=== PATIENT | male | born 1945 | race Caucasian/White ===

== ENCOUNTER → 2016-02-27 | Outpatient (CLI) | payer BC ==
[~2016-02-27] MED LIST: ALLO100T; ALLO100T PO; AMBI10TA PO; ASPI81TA11 PO; ATOR1TAB18 PO; AVAN8TAB3; BABY81CH; CALCCHW12; CARI350T; CIPR25SS; FLAG250T; FLUO20CA8 PO; GLIP5TAB8 PO; PERCOCET PO; PRIL40CA PO; PROZ10CA; SOMA350T PO; TAMS0.4C2 PO; THERGRAN; TOPA200T6 PO; TOPI15CA; TRAM50TA2 PO; XANA1TAB; XANA2TAB2 PO; questran
== END ==
LOC: M LAB 14:43
PROVIDERS: ATTEND Radiology Radiation Oncology
DX: C61 Malignant neoplasm of prostate (principal)

== ENCOUNTER → 2016-02-29 | Outpatient (CLI) | payer BC | LOC: M ONCR 13:04 | PROVIDERS: ATTEND Radiology Radiation Oncology | DX: C61 Malignant neoplasm of prostate (principal); Z53.8 Procedure and treatment not carried out for other reasons ==

== ENCOUNTER → 2016-05-25 | Outpatient (REF) | payer BC ==
[2016-05-25 15:51] LABS: ALBUMIN 3.4 GM/DL (3.2-5.2); BILIRUBIN,TOTAL 0.3 MG/DL (0.2-1.0); CALCIUM LEVEL 8.8 MG/DL (8.8-10.2); CREATININE FOR GFR 1.91 MG/DL (0.70-1.30); GLOMERULAR FILTRATION RATE 37.3 (>42); TOTAL PROTEIN 6.8 GM/DL (6.4-8.2)
== END ==
LOC: M SFHCPLAZ 11:21
PROVIDERS: ATTEND Family Medicine
DX: E66.01 Morbid (severe) obesity due to excess calories (principal); E11.3551 Type 2 diabetes mellitus with stable proliferative diabetic retinopathy, right eye

== ENCOUNTER → 2016-06-14 | Outpatient (CLI) | payer BC | LOC: M LAB 12:34 | PROVIDERS: ATTEND Radiology Radiation Oncology | DX: C61 Malignant neoplasm of prostate (principal) ==

== ENCOUNTER → 2016-06-20 | Outpatient (CLI) | payer BC ==
--- NOTE | 2016-06-26 13:20 | RADONC ---
RADIATION ONCOLOGY FOLLOWUP NOTE DATE: 06/20/2016 CHART NUMBER: [id number] DIAGNOSIS: Prostate cancer. STAGE: II, G5pN0I4. ECOG PERFORMANCE STATUS: 0 FOLLOWUP NOTE: Mr. Wagner is a very pleasant 71-year-old white male with the diagnosis of a stage II, [id number], moderate to poorly differentiated [place] score 7 (3-4) adenocarcinoma of prostate who is presenting to us today for routine followup visit 5 years and 2 months post completion of external beam radiation therapy. The patient presents today reporting that he is doing quite well with no complaints at this time related to his radiation therapy or disease. He is having no urinary or bowel difficulties, and no bone pain. REVIEW OF SYSTEMS: The patient's review of systems is otherwise noncontributory. He denies nausea, vomiting, fevers, chills, night sweats, diplopia, headaches, anxiety or depression, anorexia, weight loss, visual disturbances, chest pain, urinary or bowel difficulties, bone pain or neurological problems. PHYSICAL EXAMINATION: The patient is a well-developed, well-nourished male in no acute distress. HEENT exam is normocephalic, atraumatic. Extraocular movements are intact. There is no palpable cervical, supraclavicular, infraclavicular, axillary, or inguinal lymphadenopathy present. Lungs are clear to auscultation and percussion. Heart has a regular rate and rhythm. Abdomen is benign with no hepatosplenomegaly, masses, or tenderness. Rectal examination reveals a normal anal sphincter tone. His prostate is smooth with no evidence of nodularity. Skeletal examination reveals no tenderness to pressure or percussion of the bony skeleton. Extremities reveal no clubbing, cyanosis, or edema. Neurologic exam is grossly intact as is the remainder of the physical examination. ASSESSMENT: The patient is clinically stable at this time. A PSA was done on 06/14/2016 which is 3.43. This is actually down from previous PSA on 02/27/2016 which was 3.54, which itself was down from the PSA prior to that on 11/25/2015 which was 3.76. In light of the fact that we have had two PSAs decreasing in number on subsequent visits, I have now set him up for routine followup in 1 year. He will also continue to be followed by his other physicians as well. cc: Tan Encarnacion MD *Dr. Ole Echavarria *Reed Smith MD
== END ==
LOC: M ONCR 14:35
PROVIDERS: ATTEND Radiology Radiation Oncology
DX: C61 Malignant neoplasm of prostate (principal)

== ENCOUNTER → 2016-06-22 | Outpatient (REF) | payer BC | LOC: M SFHCPLAZ 14:20 | PROVIDERS: ATTEND Family Medicine | DX: N18.3 Chronic kidney disease, stage 3 (moderate) (principal) ==

== ENCOUNTER → 2016-10-24 | Outpatient (CLI) | payer BC ==
[~2016-10-24] MED LIST changes: +ASPI-101 PO; -ASPI81TA11 PO; -ATOR1TAB18 PO; +ATOR80TA59 PO; -TOPA200T6 PO; +TOPA200T7 PO
[2016-10-24 16:03] LABS: CALCIUM LEVEL 8.8 MG/DL (8.8-10.2); CREATININE FOR GFR 1.96 MG/DL (0.70-1.30); GLOMERULAR FILTRATION RATE 36.1 (>42); POTASSIUM SERUM 4.9 MEQ/L (3.5-5.1)
== END ==
LOC: M LAB 14:34
PROVIDERS: ATTEND Family Medicine
DX: N18.3 Chronic kidney disease, stage 3 (moderate) (principal)

== ENCOUNTER → 2016-11-12 | Outpatient (REF) | payer BC, SELFPAY ==
[2016-11-12 19:08] LABS: COMPLEMENT C3 136 MG/DL (90-180); COMPLEMENT C4 37.4 MG/DL (10-40); TOTAL PROTEIN 7.2 GM/DL (6.4-8.2)
[2016-11-12 21:49] LABS: BACTERIA, URINE SMALL AMOUNT; HYALINE CAST, URINE NONE SEEN /lpf (0-1); MICROSCOPIC EXAM PERFORMED; RBC, URINE 0-1 /hpf (0-3); SQUAMOUS EPITHELIAL CELL URINE SMALL AMOUNT /hpf (SMALL AMT)
[2016-11-14 11:30] LABS: HEPATITIS B SURFACE ANTIBODY NEGATIVE (POSITIVE)
[2016-11-15 00:07] LABS: FREE KAPPA LIGHT CHAINS SERUM 32.1 mg/L (3.3-19.4); FREE LAMBDA LIGHT CHAINS SERUM 27.3 mg/L (5.7-26.3); HCV RNA NAA QUALITIATIVE Negative (Negative); KAPPA/LAMBDA RATIO SERUM 1.18 (0.26-1.65)
[2016-11-15 13:26] LABS: ALBUMIN % 56.9 % (55.8-66.1); GAMMA GLOBULIN % 11.4 % (11.1-18.8)
== END ==
LOC: M LAB REF 12:34
PROVIDERS: ATTEND Internal Medicine Nephrology
DX: I12.9 Hypertensive chronic kidney disease with stage 1 through stage 4 chronic kidney disease, or unspecified chronic kidney disease (principal); N18.3 Chronic kidney disease, stage 3 (moderate); R80.9 Proteinuria, unspecified

== ENCOUNTER → 2016-11-15 | Outpatient (CLI) | payer BC ==
--- NOTE | 2016-11-15 17:00 | REP ---
RENAL ULTRASOUND: Real-time sonographic evaluation of the kidneys is performed. The right kidney is normal in size and echotexture measuring 14.2 x 6.4 x 5.2 cm. The left kidney is smaller and increased in echotexture measuring 10.1 x 3.3 x 4.2 cm. There is no hydronephrosis bilaterally. Several right renal cysts are present, one in the upper pole measuring 1.7 x 1.4 x 1.8 cm and two smaller cysts in the inferior aspect. There is a calculus in the upper pole of the left kidney, 1.3 cm in maximum diameter and a calculus in the lower pole of the left kidney 1.6 cm in maximum diameter. The urinary bladder is empty and not evaluated. IMPRESSION: No hydronephrosis. Right renal cysts. Left renal calculi. Signed by Ton Baron MD 11/15/2016 05:44 P
== END ==
LOC: M RAD 11:21
PROVIDERS: ATTEND Internal Medicine Nephrology
DX: R80.9 Proteinuria, unspecified (principal); I12.9 Hypertensive chronic kidney disease with stage 1 through stage 4 chronic kidney disease, or unspecified chronic kidney disease; N18.3 Chronic kidney disease, stage 3 (moderate)

== ENCOUNTER → 2016-12-11 | Outpatient (CLI) | payer BC ==
[2016-12-11 13:49] LABS: BASO % 0.4 % (0.0-1.0); EOS # 0.1 10^3/uL (0.0-0.50); EOS % 1.6 % (0.0-3.0); IMMATURE GRANULOCYTE % 1.6 % (0-0); LYMPH # 1.4 10^3/uL (1.5-4.5); MEAN CORPUSCULAR HEMOGLOBIN 30.8 pg (27.0-33.0); MEAN CORPUSCULAR HGB CONC 31.5 g/dl (32.0-36.5); MEAN CORPUSCULAR VOLUME 97.6 fl (80.0-96.0); MONO # 0.6 10^3/uL (0.0-0.8); NEUTROPHILS # 4.9 10^3/uL (1.8-7.7); NEUTROPHILS % 69.4 % (36.0-66.0); PLATELET COUNT, AUTOMATED 192 10^3/uL (150-450); RED CELL DISTRIBUTION WIDTH 12.9 % (11.5-14.5); WHITE BLOOD COUNT 7.1 10^3/uL (4.0-10.0)
== END ==
LOC: M LAB 12:36
PROVIDERS: ATTEND Family Medicine
DX: N04.9 Nephrotic syndrome with unspecified morphologic changes (principal)

== ENCOUNTER → 2017-01-03 | Outpatient (CLI) | payer BC, MEDICARE ==
--- NOTE | 2017-01-03 17:20 | REP ---
Adult skeletal survey: 15 views. History: Abnormal serum protein electrophoresis. Technique: AP and lateral views of the skull are obtained along with AP and lateral views of the cervical, thoracic and lumbar spine. An AP view of the chest and ribs is acquired along with AP view of the pelvis. AP views of each humerus and each femur are included. Findings: AP and lateral views of the skull show no bony destructive lesion. The patient is edentulous. Visualized paranasal sinuses are clear. There are degenerative disc changes in the cervical spine, thoracic spine, and lumbar spine. No fracture, collapse or bony destructive lesion is seen. Pedicles and posterior elements are intact. There are old healed rib fractures noted on the left. No focal bony destructive rib lesion is seen. Vascular calcification is observed in the thighs and pelvis. No long bone lytic lesion is seen. There are metallic densities in the region of the prostate consistent with fiducial markers, conceivably prostate seeds. Impression: No focal bony destructive lesion seen. Signed by Judson Lombardo MD 01/03/2017 05:30 P
== END ==
LOC: M RAD 14:04
PROVIDERS: ATTEND Internal Medicine Medical Oncology
DX: R79.89 Other specified abnormal findings of blood chemistry (principal)

== ENCOUNTER → 2017-01-15 | Outpatient (REF) | payer BC | LOC: M LAB REF 17:24 | PROVIDERS: ATTEND Internal Medicine Medical Oncology | DX: D47.2 Monoclonal gammopathy (principal) ==

== ENCOUNTER → 2017-02-11 | Outpatient (REF) | payer BC | LOC: M LAB REF 17:08 | PROVIDERS: ATTEND Internal Medicine Nephrology | DX: E11.22 Type 2 diabetes mellitus with diabetic chronic kidney disease (principal); R80.9 Proteinuria, unspecified; I10 Essential (primary) hypertension ==

== ENCOUNTER → 2017-03-07 | Outpatient (CLI) | payer BC ==
[2017-03-07 14:35] LABS: FREE T3 2.3 PG/ML (2.2-4.0); FREE T4 0.76 NG/DL (0.76-1.46)
== END ==
LOC: M LAB 13:15
DX: R25.1 Tremor, unspecified (principal); R05 Cough; R91.8 Other nonspecific abnormal finding of lung field
CPT/HCPCS: 71046

== ENCOUNTER → 2017-03-19 | Outpatient (CLI) | payer BC | LOC: M RAD 08:10 | DX: R91.8 Other nonspecific abnormal finding of lung field (principal) ==

== ENCOUNTER → 2017-06-26 | Outpatient (CLI) | payer MEDICARE | LOC: M LAB 14:17 | DX: C61 Malignant neoplasm of prostate (principal) | CPT/HCPCS: 84153 ==

== ENCOUNTER → 2017-07-08 | Outpatient (CLI) | payer MEDICARE ==
[2017-07-08 16:32] LABS: BLOOD UREA NITROGEN 38 MG/DL (7-18)
[2017-07-08 16:32] LABS: CREATININE FOR GFR 2.29 MG/DL (0.70-1.30); GLOMERULAR FILTRATION RATE 30.1 (>42)
== END ==
LOC: M LAB 15:20
DX: M54.9 Dorsalgia, unspecified (principal); C61 Malignant neoplasm of prostate
CPT/HCPCS: 82565

== ENCOUNTER → 2017-07-10 | Outpatient (CLI) | payer MEDICARE | LOC: M RAD 08:43 | DX: M54.5 Low back pain (principal); Z85.46 Personal history of malignant neoplasm of prostate | CPT/HCPCS: 72148 ==

== ENCOUNTER → 2017-07-18 | Outpatient (CLI) | payer MEDICARE | LOC: M RAD 09:40 | DX: C61 Malignant neoplasm of prostate (principal) | CPT/HCPCS: 78306 ==

== ENCOUNTER → 2017-07-25 | Outpatient (REF) | payer MEDICARE | LOC: M SMT 17:49 | DX: R97.21 Rising PSA following treatment for malignant neoplasm of prostate (principal); C61 Malignant neoplasm of prostate (principal); Z79.899 Other long term (current) drug therapy | CPT/HCPCS: 87086 ==

== ENCOUNTER → 2017-07-26 | Outpatient (CLI) | payer MEDICARE ==
[2017-07-26 17:56] LABS: PROSTATIC SPECIFIC AG MONITOR 9.32 NG/ML (< 4.0)
== END ==
LOC: M SMT 14:37
DX: C61 Malignant neoplasm of prostate (principal)
CPT/HCPCS: 84153

== ENCOUNTER → 2017-07-31 | Outpatient (REF) | payer MEDICARE ==
[2017-07-31 17:50] LABS: IMMUNOGLOBULIN G 428 MG/DL (681-1648); IMMUNOGLOBULIN M 41.1 MG/DL (40-230); TOTAL PROTEIN 6.5 GM/DL (6.4-8.2)
[2017-07-31 18:09] LABS: URINE TOTAL PROTEIN 120.5 MG/DL (0-12)
[2017-08-01 10:28] LABS: ALBUMIN 3.65 GM/DL (3.29-5.55); ALBUMIN % 56.1 % (55.8-66.1); ALPHA-1-GLOBULIN % 5.4 % (2.9-4.9); ALPHA-1-GLOBULINS 0.35 GM/DL (0.17-0.41); ALPHA-2-GLOBULINS 0.89 GM/DL (0.42-0.99)
[2017-08-01 10:29] LABS: ALPHA-2-GLOBULINS % 13.7 % (7.1-11.8); BETA-1-GLOBULINS 0.39 GM/DL (0.28-0.60); BETA-2-GLOBULINS 0.47 GM/DL (0.19-0.55); BETA-2-GLOBULINS % 7.2 % (3.2-6.5); GAMMA GLOBULIN % 11.6 % (11.1-18.8); GAMMA GLOBULINS 0.75 GM/DL (0.65-1.58)
[2017-08-01 13:44] LABS: UPEP INTERPRETATION NO M-SPIKE NOTED; URINE VOLUME RANDOM ML
[2017-08-03 00:09] LABS: FREE LAMBDA LIGHT CHAINS SERUM 28.2 mg/L (5.7-26.3); KAPPA/LAMBDA RATIO SERUM 1.24 (0.26-1.65)
== END ==
LOC: M LAB REF 16:42
DX: C61 Malignant neoplasm of prostate (principal)
CPT/HCPCS: 84165

== ENCOUNTER → 2017-08-30 | Outpatient (CLI) | payer MEDICARE ==
[2017-08-30 19:35] LABS: PROSTATIC SPECIFIC AG MONITOR 5.08 NG/ML (< 4.0)
== END ==
LOC: M SMT 14:47
DX: C61 Malignant neoplasm of prostate (principal); R97.21 Rising PSA following treatment for malignant neoplasm of prostate
CPT/HCPCS: 84153

== ENCOUNTER → 2017-08-30 | Outpatient (CLI) | payer MEDICARE ==
[2017-08-30 19:27] LABS: PREALBUMIN 32.5 MG/DL (20.0-40.0)
[2017-08-30 19:27] LABS: ALBUMIN 3.4 GM/DL (3.2-5.2)
[2017-08-30 19:45] LABS: TOTAL 25(OH) VITAMIN D 27.5 NG/ML (30.0-100.0)
[2017-08-30 20:15] LABS: INR 0.99; PROTHROMBIN TIME 13.2 SECONDS (12.1-14.4)
== END ==
LOC: M SMT 14:50
DX: N04.9 Nephrotic syndrome with unspecified morphologic changes (principal); F32.9 Major depressive disorder, single episode, unspecified; C61 Malignant neoplasm of prostate; R97.21 Rising PSA following treatment for malignant neoplasm of prostate; Z68.41 Body mass index [BMI] 40.0-44.9, adult
CPT/HCPCS: 82040

== ENCOUNTER → 2017-09-10 | Outpatient (REF) | payer MEDICARE ==
[2017-09-10 17:49] LABS: TOTAL PROTEIN,RANDOM URINE 72.1 MG/DL (0.0-12.0)
== END ==
LOC: M LAB REF 16:58
DX: E11.22 Type 2 diabetes mellitus with diabetic chronic kidney disease (principal); R80.9 Proteinuria, unspecified; I10 Essential (primary) hypertension
CPT/HCPCS: 84156

== ENCOUNTER → 2017-09-17 | Outpatient (CLI) | payer MEDICARE | LOC: M RAD 12:44 | DX: N18.3 Chronic kidney disease, stage 3 (moderate) (principal); R39.14 Feeling of incomplete bladder emptying | CPT/HCPCS: 78707 ==

== ENCOUNTER → 2017-11-11 | Outpatient (CLI) | payer MEDICARE ==
[~2017-11-11] MED LIST changes: -ALLO100T; -ALLO100T PO; -AMBI10TA PO; -ASPI-101 PO; -ATOR80TA59 PO; -AVAN8TAB3; -BABY81CH; +BUPIVACAINE HCL 0.25% 30 ML VIAL As Ordered; -CALCCHW12; -CARI350T; -CIPR25SS; -FLAG250T; -FLUO20CA8 PO; -GLIP5TAB8 PO; +ISOVUE-M 300 61% 15ML VIAL (Q9967) As Ordered; +LIDOCAINE 1% SDV INJ 30 ML VIAL As Ordered; -PERCOCET PO; -PRIL40CA PO; -PROZ10CA; -SOMA350T PO; -TAMS0.4C2 PO; -THERGRAN; -TOPA200T7 PO; -TOPI15CA; -TRAM50TA2 PO; +TRIAMCINOLONE ACETONIDE SUSP 40 MG/ML VIAL (J3301) As Ordered; -XANA1TAB; -XANA2TAB2 PO; -questran
== END ==
LOC: M PAIN 13:00
DX: G89.29 Other chronic pain (principal); M46.1 Sacroiliitis, not elsewhere classified; M53.88 Other specified dorsopathies, sacral and sacrococcygeal region; E11.9 Type 2 diabetes mellitus without complications; I10 Essential (primary) hypertension; K21.9 Gastro-esophageal reflux disease without esophagitis; G47.30 Sleep apnea, unspecified; G47.00 Insomnia, unspecified; G25.81 Restless legs syndrome; F10.21 Alcohol dependence, in remission; F32.9 Major depressive disorder, single episode, unspecified; F41.9 Anxiety disorder, unspecified; Z79.84 Long term (current) use of oral hypoglycemic drugs; Z79.891 Long term (current) use of opiate analgesic; Z79.82 Long term (current) use of aspirin; Z79.899 Other long term (current) drug therapy; Z88.0 Allergy status to penicillin; Z91.040 Latex allergy status; Z85.46 Personal history of malignant neoplasm of prostate; Z85.3 Personal history of malignant neoplasm of breast; Z86.711 Personal history of pulmonary embolism; Z87.39 Personal history of other diseases of the musculoskeletal system and connective tissue; Z87.891 Personal history of nicotine dependence
CPT/HCPCS: J3301

== ENCOUNTER → 2017-12-09 | Outpatient (CLI) | payer MEDICARE ==
[2017-12-09 17:48] LABS: ANION GAP 7 MEQ/L (8-16); BLOOD UREA NITROGEN 52 MG/DL (7-18); CARBON DIOXIDE LEVEL 23 MEQ/L (21-32); CHLORIDE LEVEL 113 MEQ/L (98-107); CREATININE FOR GFR 2.76 MG/DL (0.70-1.30); GLOMERULAR FILTRATION RATE 24.2 (>42); GLUCOSE, FASTING 145 MG/DL (70-100); POTASSIUM SERUM 4.7 MEQ/L (3.5-5.1); SODIUM LEVEL 143 MEQ/L (136-145)
[2017-12-09 18:49] LABS: MAU/CREAT RATIO 172.9 MCG/MG (0.0-30.0)
[2017-12-09 20:04] LABS: ESTIMATED AVERAGE GLUCOSE 151 MG/DL (60-110); HEMOGLOBIN A1c 6.9 %
== END ==
LOC: M LAB 15:40
DX: E11.22 Type 2 diabetes mellitus with diabetic chronic kidney disease (principal); N18.3 Chronic kidney disease, stage 3 (moderate); R97.21 Rising PSA following treatment for malignant neoplasm of prostate
CPT/HCPCS: 83036

== ENCOUNTER → 2017-12-09 | Outpatient (CLI) | payer MEDICARE | LOC: M PAIN 14:00 | DX: R25.2 Cramp and spasm (principal); R25.1 Tremor, unspecified; E11.9 Type 2 diabetes mellitus without complications; I10 Essential (primary) hypertension; Z79.84 Long term (current) use of oral hypoglycemic drugs; Z79.82 Long term (current) use of aspirin; Z79.899 Other long term (current) drug therapy; G47.30 Sleep apnea, unspecified; G47.00 Insomnia, unspecified; G25.81 Restless legs syndrome; F32.9 Major depressive disorder, single episode, unspecified; F41.9 Anxiety disorder, unspecified; F10.21 Alcohol dependence, in remission; Z88.0 Allergy status to penicillin; Z91.040 Latex allergy status; Z85.3 Personal history of malignant neoplasm of breast; Z87.39 Personal history of other diseases of the musculoskeletal system and connective tissue; Z86.711 Personal history of pulmonary embolism; Z85.46 Personal history of malignant neoplasm of prostate; Z87.891 Personal history of nicotine dependence | CPT/HCPCS: 83036 ==

== ENCOUNTER → 2017-12-09 | Outpatient (CLI) | payer MEDICARE ==
[2017-12-09 17:50] LABS: PROSTATIC SPECIFIC AG MONITOR 0.17 NG/ML (< 4.0)
== END ==
LOC: M LAB 15:37
DX: R97.21 Rising PSA following treatment for malignant neoplasm of prostate (principal)
CPT/HCPCS: 84153

== ENCOUNTER → 2017-12-11 | Outpatient (REF) | payer MEDICARE ==
[2017-12-11 18:33] LABS: TOTAL PROTEIN,RANDOM URINE 82.2 MG/DL (0.0-12.0)
== END ==
LOC: M LAB REF 17:17
DX: E11.22 Type 2 diabetes mellitus with diabetic chronic kidney disease (principal); R80.9 Proteinuria, unspecified; I10 Essential (primary) hypertension
CPT/HCPCS: 84156

== ENCOUNTER → 2018-02-06 | Outpatient (CLI) | payer MEDICARE ==
[2018-02-06 17:33] LABS: PROSTATIC SPECIFIC AG MONITOR 0.1 NG/ML (< 4.0)
== END ==
LOC: M LAB 16:28
DX: R97.21 Rising PSA following treatment for malignant neoplasm of prostate (principal)
CPT/HCPCS: 84153

== ENCOUNTER → 2018-02-12 | Outpatient (REF) | payer MEDICARE ==
[2018-02-12 16:14] LABS: BASO % 0.6 % (0.0-1.0); EOS # 0.1 10^3/uL (0.0-0.50); EOS % 1.2 % (0.0-3.0); HEMOGLOBIN 12.9 g/dl (13.5-17.5); LYMPH # 1.2 10^3/uL (1.5-4.5); LYMPH % 17.2 % (24.0-44.0); MEAN CORPUSCULAR HEMOGLOBIN 31.2 pg (27.0-33.0); MEAN CORPUSCULAR HGB CONC 32.3 g/dl (32.0-36.5); MEAN CORPUSCULAR VOLUME 96.9 fl (80.0-96.0); MONO # 0.5 10^3/uL (0.0-0.8); MONO % 6.9 % (0.0-5.0); NEUTROPHILS # 5.1 10^3/uL (1.8-7.7); NEUTROPHILS % 73.1 % (36.0-66.0); PLATELET COUNT, AUTOMATED 194 10^3/uL (150-450); RED BLOOD COUNT 4.13 10^6/uL (4.30-6.10); RED CELL DISTRIBUTION WIDTH 12.5 % (11.5-14.5); RETIC HEMOGLOBIN EQUIVALENT 34.9 pg (24-36); RETICULOCYTE # 151.2 10^9/L (17-77); RETICULOCYTE % 3.7 % (0.5-1.5); WHITE BLOOD COUNT 6.9 10^3/uL (4.0-10.0)
[2018-02-12 16:37] LABS: ALBUMIN 3.1 GM/DL (3.2-5.2); ALKALINE PHOSPHATASE 58 U/L (45-117); ALT/SGPT 32 U/L (12-78); ANION GAP 10 MEQ/L (8-16); AST/SGOT 19 U/L (7-37); BILIRUBIN,TOTAL 0.2 MG/DL (0.2-1.0); BLOOD UREA NITROGEN 32 MG/DL (7-18); CALCIUM LEVEL 8.7 MG/DL (8.8-10.2); CARBON DIOXIDE LEVEL 22 MEQ/L (21-32); CHLORIDE LEVEL 110 MEQ/L (98-107); CPK CREATINE PHOSPHOKINASE 49 U/L (39-308); CREATININE FOR GFR 2.16 MG/DL (0.70-1.30); FREE T4 0.69 NG/DL (0.76-1.46); GLOMERULAR FILTRATION RATE 32.2 (>42); GLUCOSE, FASTING 232 MG/DL (70-100); POTASSIUM SERUM 4.4 MEQ/L (3.5-5.1); SODIUM LEVEL 142 MEQ/L (136-145); TOTAL PROTEIN 6.2 GM/DL (6.4-8.2)
[2018-02-12 16:39] LABS: VITAMIN B12 LEVEL 614 PG/ML (247-911)
[2018-02-12 16:40] LABS: FOLATE > 24.0 NG/ML (>5.4)
[2018-02-12 18:07] LABS: ERYTHROCYTE SEDIMENTATION RATE 12 mm/hr (0-20)
[2018-02-13 14:03] LABS: ALPHA-1-GLOBULIN % 5.4 % (2.9-4.9); ALPHA-1-GLOBULINS 0.33 GM/DL (0.17-0.41); ALPHA-2-GLOBULINS 0.84 GM/DL (0.42-0.99); ALPHA-2-GLOBULINS % 13.5 % (7.1-11.8); BETA-1-GLOBULINS 0.36 GM/DL (0.28-0.60); BETA-1-GLOBULINS % 5.8 % (4.7-7.2); BETA-2-GLOBULINS 0.41 GM/DL (0.19-0.55); BETA-2-GLOBULINS % 6.6 % (3.2-6.5); GAMMA GLOBULIN % 10.7 % (11.1-18.8); GAMMA GLOBULINS 0.66 GM/DL (0.65-1.58)
== END ==
LOC: M SFHCPLAZ 14:36
DX: M79.10 Myalgia, unspecified site (principal); R53.1 Weakness
CPT/HCPCS: 82550

== ENCOUNTER → 2018-04-17 | Outpatient (REF) | payer MEDICARE ==
[~2018-04-17] MED LIST changes: +ALLO100T; +ALLO100T PO; +AMBI10TA PO; +ASPI-225 PO; +ATOR80TA59 PO; +AVAN8TAB3; +BABY81CH; -BUPIVACAINE HCL 0.25% 30 ML VIAL As Ordered; +CALCCHW12; +CARI350T; +CIPR25SS; +FLAG250T; +FLUO20CA8 PO; +GLIP5TAB8 PO; -ISOVUE-M 300 61% 15ML VIAL (Q9967) As Ordered; -LIDOCAINE 1% SDV INJ 30 ML VIAL As Ordered; +PERCOCET PO; +PRIL40CA PO; +PROZ10CA; +SOMA350T PO; +TAMS0.4C2 PO; +THERGRAN; +TOPA200T7 PO; +TOPI15CA; +TRAM50TA2 PO; -TRIAMCINOLONE ACETONIDE SUSP 40 MG/ML VIAL (J3301) As Ordered; +XANA1TAB; +XANA2TAB2 PO; +questran
== END ==
LOC: M LAB REF 17:31
PROVIDERS: ATTEND Internal Medicine Nephrology
DX: E11.22 Type 2 diabetes mellitus with diabetic chronic kidney disease (principal); R80.9 Proteinuria, unspecified; I10 Essential (primary) hypertension

== ENCOUNTER 2018-05-01 10:59 | Emergency (ER) | payer MEDICARE ==
[~2018-05-01] VITALS: Ht 167.6 cm; Wt 112.3 kg
[2018-05-01] MEDS ORDERED: VITA100066 PO (11:31)
[2018-05-01] MEDS ORDERED: CENTCHW4 PO (11:31)
[2018-05-01] MEDS ORDERED: GLIP-163 PO (11:31)
[2018-05-01] MEDS ORDERED: MAGN250T11 PO (11:31)
[2018-05-01] MEDS ORDERED: IRON50TA PO (11:31)
[2018-05-01] MEDS ORDERED: SENN8.6T7 PO (11:31)
[2018-05-01] MEDS ORDERED: FEBU40TA PO (11:31)
[2018-05-01] MEDS ORDERED: PROZ40CA PO (11:31)
[2018-05-01] MEDS ORDERED: DRON2.5C11 PO (11:31)
[2018-05-01] MEDS ORDERED: LISI10TA4 PO (11:31)
[2018-05-01] MEDS ORDERED: COLA100C5 PO (11:31)
[2018-05-01 11:56] LABS: BASO % 0.3 % (0.0-1.0); EOS # 0.1 10^3/uL (0.0-0.50); EOS % 0.5 % (0.0-3.0); HEMATOCRIT 37.9 % (42.0-52.0); HEMOGLOBIN 12.3 g/dl (13.5-17.5); LYMPH % 10.2 % (24.0-44.0); MEAN CORPUSCULAR HEMOGLOBIN 31.5 pg (27.0-33.0); MEAN CORPUSCULAR HGB CONC 32.5 g/dl (32.0-36.5); MEAN CORPUSCULAR VOLUME 97.2 fl (80.0-96.0); MONO # 1.1 10^3/uL (0.0-0.8); MONO % 11.3 % (0.0-5.0); NEUTROPHILS # 7.7 10^3/uL (1.8-7.7); NEUTROPHILS % 76.9 % (36.0-66.0); PLATELET COUNT, AUTOMATED 183 10^3/uL (150-450)
[2018-05-01 11:57] LABS: VENOUS BASE EXCESS -4.8 (-2.0-2.0); VENOUS HCO3 19.8 MEQ/L (23.0-27.0); VENOUS O2 SATURATION 96.9 % (60.0-80.0); VENOUS PARTIAL PRESSURE CO2 35.3 mmHg (38.0-50.0); VENOUS PARTIAL PRESSURE O2 92.9 mmHg (30.0-50.0); VENOUS PH 7.367 UNITS (7.330-7.430); VENOUS STANDARD HCO3 20.5 MEQ/L; VENOUS TOTAL CO2 20.9 MEQ/L (24.0-28.0)
--- NOTE | 2018-05-01 12:11 | REP ---
PORTABLE CHEST: AP portable view of the chest is performed and compared to a prior study of 03/07/2017. There is increased density in the region of the lingula which may represent atelectasis or infiltrate. The right lung is clear. Cardiomediastinal silhouette appears essentially unchanged. Patient appears tilted toward the left side but there may be an element of volume loss on the left, which is shifting the cardiac silhouette toward that side. There are degenerative changes of the spine. Electronically Signed by Ton Baron MD 05/01/2018 05:05 P
[2018-05-01 12:34] LABS: ALT/SGPT 32 U/L (12-78); BILIRUBIN,DIRECT 0.2 MG/DL (0.0-0.2); BILIRUBIN,TOTAL 0.4 MG/DL (0.2-1.0); BLOOD UREA NITROGEN 32 MG/DL (7-18); CALCIUM LEVEL 8.7 MG/DL (8.8-10.2); CARBON DIOXIDE LEVEL 21 MEQ/L (21-32); CHLORIDE LEVEL 111 MEQ/L (98-107); CK-MB VALUE MASS < 1.0 NG/ML (<3.6); CPK CREATINE PHOSPHOKINASE 98 U/L (39-308); CREATININE FOR GFR 2.13 MG/DL (0.70-1.30); GLOMERULAR FILTRATION RATE 32.7 (>42); GLUCOSE, FASTING 162 MG/DL (70-100); MB/CK RELATIVE INDEX 1.02 (< OR =4); POTASSIUM SERUM 4.4 MEQ/L (3.5-5.1); SODIUM LEVEL 141 MEQ/L (136-145); TOTAL PROTEIN 6.3 GM/DL (6.4-8.2); TROPONIN I < 0.02 NG/ML (< 0.10)
[2018-05-01 12:35] LABS: INFLUENZA A AMPLIFICATION NEGATIVE (NEGATIVE); INFLUENZA B AMPLIFICATION NEGATIVE (NEGATIVE)
--- NOTE | 2018-05-01 13:33 | REP ---
CT BRAIN WITHOUT CONTRAST: HISTORY: Altered mental status. Comparison brain CT study October 2007. CT FINDINGS: Preliminary digital can labeler radiograph is unremarkable. The patient is edentulous. Bone window settings demonstrate no bony destructive lesion or fracture. Visualized paranasal sinuses are clear. There is mild vascular calcification. No intraorbital abnormality. Soft tissue window settings demonstrate diffuse cerebral atrophy moderate in degree and somewhat more pronounced than on the 2007 study. There is no evidence of intracranial hemorrhage. There is concordant ventriculomegaly. There is no infarct, mass, extra-axial fluid collection, or midline shift. IMPRESSION: Diffuse moderate atrophy and vascular calcification. No acute intracranial abnormality. Electronically Signed by Judson Lombardo MD 05/01/2018 01:43 P
[2018-05-01 14:24] VITALS: BP 137/60
--- NOTE | 2018-05-02 06:51 | ECGEPIP ---
Stationary ECG Study [facility] - ED Test Date: 2018-05-01 Pat Name: SHIRA MANCINI Department: Room: - Gender: M Electrical Fitter: TC : 1945 Requested By: Daysi Manley Order Number: [id number] Reading MD: Chris Bucio Measurements Intervals [place] Rate: 95 P: 43 VT: 150 QRS: -48 QRSD: 86 T: -4 QT: 317 QTc: 400 Interpretive Statements SINUS RHYTHM MARKED LEFT AXIS DEVIATION POSSIBLE ANTERIOR MYOCARDIAL INFARCTION, OF INDETERMINATE AGE SIMILAR TO 12/04/13 Electronically Signed On 05-02-2018 6:51:48 EST by Chris Bucio
--- NOTE | 2018-05-02 14:58 | ED PDOC ---
Post-Departure Follow-Up dr darby renteria faxed formal report of cxr for fu Torsten Quiros MD May 02, 2018 14:58
== END 2018-05-01 14:33 | disposition home or self-care (01) ==
LOC: EDBD 10:59 → M ED 10:59
DX: R53.1 Weakness (principal); W19.XXXA Unspecified fall, initial encounter; Y92.098 Other place in other non-institutional residence as the place of occurrence of the external cause; T50.905A Adverse effect of unspecified drugs, medicaments and biological substances, initial encounter; G47.33 Obstructive sleep apnea (adult) (pediatric); E11.9 Type 2 diabetes mellitus without complications; I10 Essential (primary) hypertension; K21.9 Gastro-esophageal reflux disease without esophagitis; K44.9 Diaphragmatic hernia without obstruction or gangrene; M10.9 Gout, unspecified; C61 Malignant neoplasm of prostate; C50 Malignant neoplasm of breast; Z88.0 Allergy status to penicillin; Z91.040 Latex allergy status; Z79.899 Other long term (current) drug therapy; Z79.82 Long term (current) use of aspirin; Z79.891 Long term (current) use of opiate analgesic

== ENCOUNTER → 2018-06-02 | Outpatient (CLI) | payer MEDICARE ==
[~2018-06-02] MED LIST changes: +CENTCHW4 PO; +COLA100C5 PO; +DRON2.5C11 PO; +FEBU40TA PO; +GLIP-163 PO; +IRON50TA PO; +LISI10TA4 PO; +MAGN250T11 PO; +PROZ40CA PO; +SENN1TAB41 PO; +VITA100066 PO
== END ==
LOC: M SMT 14:04
PROVIDERS: ATTEND Urology
DX: R97.21 Rising PSA following treatment for malignant neoplasm of prostate (principal); C61 Malignant neoplasm of prostate

== ENCOUNTER → 2018-06-02 | Outpatient (CLI) | payer MEDICARE ==
[2018-06-02 17:44] LABS: BASO % 0.5 % (0.0-1.0); EOS # 0.2 10^3/uL (0.0-0.50); EOS % 2.4 % (0.0-3.0); HEMATOCRIT 39.9 % (42.0-52.0); HEMOGLOBIN 12.2 g/dl (13.5-17.5); LYMPH # 1.3 10^3/uL (1.5-4.5); LYMPH % 17.8 % (24.0-44.0); MEAN CORPUSCULAR HEMOGLOBIN 30.3 pg (27.0-33.0); MEAN CORPUSCULAR HGB CONC 30.6 g/dl (32.0-36.5); MEAN CORPUSCULAR VOLUME 99.3 fl (80.0-96.0); MONO # 0.6 10^3/uL (0.0-0.8); MONO % 7.4 % (0.0-5.0); NEUTROPHILS # 5.3 10^3/uL (1.8-7.7); NEUTROPHILS % 70.3 % (36.0-66.0); PLATELET COUNT, AUTOMATED 247 10^3/uL (150-450); RED BLOOD COUNT 4.02 10^6/uL (4.30-6.10); WHITE BLOOD COUNT 7.5 10^3/uL (4.0-10.0)
[2018-06-02 17:52] LABS: BLOOD UREA NITROGEN 29 MG/DL (7-18); CALCIUM LEVEL 9.7 MG/DL (8.8-10.2); CARBON DIOXIDE LEVEL 22 MEQ/L (21-32); CHLORIDE LEVEL 110 MEQ/L (98-107); CREATININE FOR GFR 2.11 MG/DL (0.70-1.30); GLUCOSE, FASTING 191 MG/DL (70-100); POTASSIUM SERUM 4.5 MEQ/L (3.5-5.1); SODIUM LEVEL 140 MEQ/L (136-145); TOTAL PROTEIN 6.6 GM/DL (6.4-8.2)
[2018-06-02 17:54] LABS: TOTAL PROTEIN,RANDOM URINE 98.3 MG/DL (0.0-12.0); URINE TOTAL PROTEIN 98.3 MG/DL (0-12)
[2018-06-03 11:40] LABS: ALBUMIN 3.47 GM/DL (3.29-5.55); ALBUMIN % 52.6 % (55.8-66.1); ALPHA-1-GLOBULIN % 6.7 % (2.9-4.9); ALPHA-1-GLOBULINS 0.44 GM/DL (0.17-0.41); ALPHA-2-GLOBULINS % 15.1 % (7.1-11.8); BETA-1-GLOBULINS % 5.9 % (4.7-7.2); BETA-2-GLOBULINS % 7.4 % (3.2-6.5); GAMMA GLOBULIN % 12.3 % (11.1-18.8)
[2018-06-03 11:41] LABS: BETA-1-GLOBULINS 0.39 GM/DL (0.28-0.60); BETA-2-GLOBULINS 0.49 GM/DL (0.19-0.55); GAMMA GLOBULINS 0.81 GM/DL (0.65-1.58)
[2018-06-03 12:24] LABS: IMMUNOTYPING SERUM IGA ABNORMAL (NORMAL); IMMUNOTYPING SERUM LAMBDA ABNORMAL (NORMAL)
== END ==
LOC: M SMT 14:00
PROVIDERS: ATTEND Family Medicine
DX: D47.2 Monoclonal gammopathy (principal); R97.21 Rising PSA following treatment for malignant neoplasm of prostate; C61 Malignant neoplasm of prostate

== ENCOUNTER → 2018-08-04 | Outpatient (CLI) | payer MEDICARE | LOC: M SMT 14:55 | PROVIDERS: ATTEND Urology | DX: C61 Malignant neoplasm of prostate (principal) ==

== ENCOUNTER → 2018-08-04 | Outpatient (CLI) | payer MEDICARE ==
[2018-08-04 19:48] LABS: CALCIUM LEVEL 9.7 MG/DL (8.8-10.2); CREATININE FOR GFR 2.27 MG/DL (0.70-1.30); GLOMERULAR FILTRATION RATE 30.3 (>42); POTASSIUM SERUM 4.8 MEQ/L (3.5-5.1)
[2018-08-04 20:50] LABS: MAU/CREAT RATIO 301.8 MCG/MG (0.0-30.0)
[2018-08-04 21:09] LABS: HEMOGLOBIN A1c 6.6 %
== END ==
LOC: M SMT 14:59
PROVIDERS: ATTEND Family Medicine
DX: E11.22 Type 2 diabetes mellitus with diabetic chronic kidney disease (principal); C61 Malignant neoplasm of prostate

== ENCOUNTER → 2018-10-18 | Outpatient (CLI) | payer MEDICARE ==
[~2018-10-18] MED LIST changes: -FEBU40TA PO; +FEBU40TA4 PO
[2018-10-18 15:37] LABS: CHOLESTEROL RISK RATIO 4.054 (<5)
--- NOTE | 2018-10-18 16:14 | REP ---
Lumbar spine two views AP and lateral projections: There are no comparisons. Vertebral body heights, interspacing alignment are normal. There are no lytic, blastic or destructive changes. The pedicles are unremarkable. Sacroiliac articulations are unremarkable. There is a small anterior osteophyte at L3 compatible with mild degenerative disc disease. Impression: There are no lytic, blastic or destructive skeletal changes. There is mild degenerative disc disease at L2-3. Otherwise, negative lumbar spine. Electronically Signed by Ton Jorgensen MD 10/18/2018 04:06 P
--- NOTE | 2018-10-18 16:15 | REP ---
Sacroiliac joint series four views: There are bowel artifacts in the pelvis and superimposed over the iliac wings. The sacroiliac articulations are unremarkable. Mineralization is normal. There are no lytic, blastic or destructive skeletal changes. Impression: Negative sacroiliac joint series. Electronically Signed by Ton Jorgensen MD 10/18/2018 04:07 P
--- NOTE | 2018-10-18 16:16 | REP ---
Right shoulder three views: There is acromioclavicular osteoarthritis. Mineralization is normal. The glenohumeral joint is unremarkable. There are no calcifications or foreign bodies. There is no fracture or dislocation. Impression: Acromioclavicular osteoarthritis. Otherwise, negative right shoulder. Electronically Signed by Ton Jorgensen MD 10/18/2018 04:08 P
[2018-10-18 16:18] LABS: HEMOGLOBIN A1c 7.3 %
[2018-10-18 16:56] LABS: MAU/CREAT RATIO 341.7 MCG/MG (0.0-30.0)
== END ==
LOC: M LAB 14:24
PROVIDERS: ATTEND Family Medicine
DX: M46.1 Sacroiliitis, not elsewhere classified (principal); E11.22 Type 2 diabetes mellitus with diabetic chronic kidney disease; M19.011 Primary osteoarthritis, right shoulder; N18.3 Chronic kidney disease, stage 3 (moderate); M51.36 Other intervertebral disc degeneration, lumbar region

== ENCOUNTER → 2018-11-21 | Outpatient (CLI) | payer MEDICARE | LOC: M SMT 14:06 | PROVIDERS: ATTEND Urology | DX: C61 Malignant neoplasm of prostate (principal) ==

== ENCOUNTER → 2019-01-29 | Outpatient (REF) | payer MEDICARE ==
[2019-01-29 17:26] LABS: CALCIUM LEVEL 9.7 MG/DL (8.8-10.2); CREATININE FOR GFR 2.45 MG/DL (0.70-1.30); GLOMERULAR FILTRATION RATE 27.7 (>42); POTASSIUM SERUM 4.2 MEQ/L (3.5-5.1)
== END ==
LOC: M SFHCPLAZ 13:59
PROVIDERS: ATTEND Family Medicine
DX: C61 Malignant neoplasm of prostate (principal); E11.22 Type 2 diabetes mellitus with diabetic chronic kidney disease; N18.3 Chronic kidney disease, stage 3 (moderate); Z51.81 Encounter for therapeutic drug level monitoring

== ENCOUNTER → 2019-02-13 | Outpatient (REF) | payer MEDICARE ==
[~2019-02-13] MED LIST changes: +FLUO20CA20 PO; -FLUO20CA8 PO
== END ==
LOC: M SMT 16:57
PROVIDERS: ATTEND Urology
DX: R30.0 Dysuria (principal)

== ENCOUNTER → 2019-03-31 | Outpatient (CLI) | payer MEDICARE ==
[~2019-03-31] MED LIST changes: -ASPI-225 PO; +ASPI81TA78 PO; +FLOM0.4C39 PO; +OMEP40CA97 PO; +VITA100054 PO
--- NOTE | 2019-03-31 16:34 | REP ---
No survey: Comparison is 01/03/2017. Skull AP and lateral views: There are multiple small lucencies, not significantly changed. These are nonspecific. Cervical spine AP and lateral views: There are no lucencies. There is advanced degenerative disc disease. This is unchanged. Thoracic spine two views: There are no lucencies. There is multilevel degenerative disc disease. There is mild scoliosis convex right. Lumbar spine two views: There are no lucencies. There is mild degenerative disc disease at multiple levels, unchanged. AP pelvis: There are surgical clips just above the pubic symphysis. There are no lytic lesions. The sacroiliac and hip articulations are unremarkable. Bilateral humeri: There are no lucencies. Otherwise unremarkable. Bilateral femurs: There are no lucencies. Otherwise, unremarkable. Electronically Signed by Ton Jorgensen MD 03/31/2019 04:26 P
== END ==
LOC: M RAD 14:33
PROVIDERS: ATTEND Internal Medicine Hematology
DX: C61 Malignant neoplasm of prostate (principal)

== ENCOUNTER → 2019-05-26 | Outpatient (REF) | payer MEDICARE ==
[2019-05-26 17:34] LABS: APPEARANCE, URINE CLOUDY (CLEAR); BACTERIA, URINE AUTO 1+ (NEGATIVE); BILIRUBIN, URINE AUTO NEGATIVE (NEGATIVE); BLOOD, URINE BLOOD 3+ (NEGATIVE); COLOR, URINE YELLOW (YELLOW); GLUCOSE, URINE (UA) AUTO NEGATIVE (NEGATIVE); KETONE, URINE AUTO NEGATIVE (NEGATIVE); LEUKOCYTE ESTERASE, URINE AUTO 3+ (NEGATIVE); NITRITE, URINE AUTO NEGATIVE (NEGATIVE); PROTEIN, URINE AUTO 2+ mg/dL (NEGATIVE); RBC, URINE AUTO 124 /HPF (0-3); SPECIFIC GRAVITY URINE AUTO 1.015 (1.002-1.035); SQUAMOUS EPITHELIAL CELL UR AU 1 /HPF (0-6); UROBILINOGEN, URINE AUTO 0.2 mg/dL (0.0-2.0); WBC, URINE AUTO TNTC /HPF (0-3)
== END ==
LOC: M SMT 17:03
PROVIDERS: ATTEND Urology
DX: N39.0 Urinary tract infection, site not specified (principal)

== ENCOUNTER → 2019-06-12 | Outpatient (REF) | payer MEDICARE ==
[2019-06-12 17:31] LABS: APPEARANCE, URINE CLEAR (CLEAR); BACTERIA, URINE AUTO 1+ (NEGATIVE); BILIRUBIN, URINE AUTO NEGATIVE (NEGATIVE); BLOOD, URINE BLOOD NEGATIVE (NEGATIVE); COLOR, URINE YELLOW (YELLOW); GLUCOSE, URINE (UA) AUTO NEGATIVE (NEGATIVE); KETONE, URINE AUTO NEGATIVE (NEGATIVE); LEUKOCYTE ESTERASE, URINE AUTO TRACE (NEGATIVE); MUCUS, URINE SMALL (NEGATIVE); NITRITE, URINE AUTO NEGATIVE (NEGATIVE); PROTEIN, URINE AUTO NEGATIVE (NEGATIVE); RBC, URINE AUTO 1 /HPF (0-3); SPECIFIC GRAVITY URINE AUTO 1.015 (1.002-1.035); SQUAMOUS EPITHELIAL CELL UR AU 0 /HPF (0-6); UROBILINOGEN, URINE AUTO 0.2 mg/dL (0.0-2.0); WBC, URINE AUTO 9 /HPF (0-3)
== END ==
LOC: M SMT 16:43
PROVIDERS: ATTEND Urology
DX: N39.0 Urinary tract infection, site not specified (principal)

== ENCOUNTER → 2019-06-26 | Outpatient (REF) | payer MEDICARE ==
[2019-06-26 19:39] LABS: HEMOGLOBIN A1c 5.8 %
== END ==
LOC: M LAB REF 16:45
PROVIDERS: ATTEND Family Medicine
DX: E11.22 Type 2 diabetes mellitus with diabetic chronic kidney disease (principal)

== ENCOUNTER → 2019-08-19 | Outpatient (CLI) | payer MEDICARE ==
[~2019-08-19] MED LIST changes: +CHOL1250 PO; +FERR325T3 PO
== END ==
LOC: M LAB 15:03
PROVIDERS: ATTEND Urology
DX: C61 Malignant neoplasm of prostate (principal)

== ENCOUNTER → 2019-10-23 | Outpatient (REF) | payer MEDICARE ==
[2019-10-23 18:34] LABS: APPEARANCE, URINE TURBID (CLEAR); BACTERIA, URINE AUTO 1+ (NEGATIVE); BILIRUBIN, URINE AUTO NEGATIVE (NEGATIVE); BLOOD, URINE BLOOD 1+ (NEGATIVE); COLOR, URINE YELLOW (YELLOW); GLUCOSE, URINE (UA) AUTO 1+ mg/dL (NEGATIVE); KETONE, URINE AUTO NEGATIVE (NEGATIVE); LEUKOCYTE ESTERASE, URINE AUTO 3+ (NEGATIVE); NITRITE, URINE AUTO NEGATIVE (NEGATIVE); PROTEIN, URINE AUTO 2+ mg/dL (NEGATIVE); RBC, URINE AUTO 65 /HPF (0-3); SPECIFIC GRAVITY URINE AUTO 1.015 (1.002-1.035); SQUAMOUS EPITHELIAL CELL UR AU 1 /HPF (0-6); UROBILINOGEN, URINE AUTO 0.2 mg/dL (0.0-2.0); WBC, URINE AUTO TNTC /HPF (0-3)
== END ==
LOC: M SMT 17:19
PROVIDERS: ATTEND Nurse Practitioner Women's Health
DX: N39.0 Urinary tract infection, site not specified (principal)

== ENCOUNTER → 2019-10-27 | Outpatient (REF) | payer MEDICARE ==
[2019-10-27 19:18] LABS: APPEARANCE, URINE CLOUDY (CLEAR); BACTERIA, URINE AUTO NEGATIVE (NEGATIVE); BILIRUBIN, URINE AUTO NEGATIVE (NEGATIVE); BLOOD, URINE BLOOD NEGATIVE (NEGATIVE); COLOR, URINE YELLOW (YELLOW); GLUCOSE, URINE (UA) AUTO 1+ mg/dL (NEGATIVE); KETONE, URINE AUTO NEGATIVE (NEGATIVE); LEUKOCYTE ESTERASE, URINE AUTO 3+ (NEGATIVE); MUCUS, URINE SMALL (NEGATIVE); NITRITE, URINE AUTO NEGATIVE (NEGATIVE); PROTEIN, URINE AUTO 2+ mg/dL (NEGATIVE); RBC, URINE AUTO 67 /HPF (0-3); SPECIFIC GRAVITY URINE AUTO 1.013 (1.002-1.035); SQUAMOUS EPITHELIAL CELL UR AU 0 /HPF (0-6); TRANSITIONAL EPITHELIAL AUTO 2 /HPF; UROBILINOGEN, URINE AUTO 0.2 mg/dL (0.0-2.0); WBC, URINE AUTO TNTC /HPF (0-3)
== END ==
LOC: M LAB REF 14:15
PROVIDERS: ATTEND Nurse Practitioner Women's Health
DX: N34.0 Urethral abscess (principal)

== ENCOUNTER → 2019-11-06 | Outpatient (CLI) | payer MEDICARE ==
--- NOTE | 2019-11-25 11:27 | REP ---
NONCONTRAST CT OF THE ABDOMEN AND PELVIS CLINICAL: Hematuria. TECHNIQUE: Axial noncontrast images from the lung bases to the pubic symphysis with coronal and sagittal reformations. COMPARISON: 05/29/2015 FINDINGS: Lung bases are clear. Visualized heart and pericardium normal. Liver, spleen, pancreas, gallbladder, bilateral adrenal glands are normal. The kidneys demonstrate atrophic changes (left greater than right) along with subtle rounded hypodense and isodense lesions likely representing simple and complex cysts which are similar to prior examination. Vascular calcifications are identified, and there is no evidence for hydronephrosis or perinephric stranding and no ureteral calculi appreciated. The enteric system is without obstruction or acute inflammatory process. Colonic diverticulosis noted without acute diverticulitis. There is a 4 cm partially calcified mass in the central mesentery with subtle fibrosis. This has progressed from prior examination and likely represents a chronic lesion, either chronic lymph node or possible carcinoid/desmoid tumor. No further mass lesions are identified. Evaluation of the pelvis demonstrates evidence for prior prostate surgery. Mass effect on the base of the bladder from the underlying prostate gland is noted. No ascites. No free air. No adenopathy. Atherosclerotic changes to the aorta noted without aneurysm. Musculoskeletal structures demonstrate degenerative changes without acute osseous abnormality. IMPRESSION: * Kidneys demonstrate atrophic changes (left greater than right) with presumed simple and complex cysts, although follow up by ultrasound may be warranted. Renal calcifications are identified and may represent vascular calcifications, although punctate nonobstructing intrarenal calculi cannot be excluded. There is no hydronephrosis or ureteral obstruction. * Bladder demonstrates mild mass effect from underlying prostate gland. * Partially calcified likely chronic mass within the central mesentery. Differential diagnosis includes but is not limited to calcified lymph nodes as well as desmoid tumor, carcinoid tumor, and other possibilities. * Further nonacute findings as described above. MTDD
== END ==
LOC: M RAD 15:53
PROVIDERS: ATTEND Nurse Practitioner Women's Health
DX: R19.00 Intra-abdominal and pelvic swelling, mass and lump, unspecified site (principal); N28.1 Cyst of kidney, acquired; R31.29 Other microscopic hematuria; Z85.46 Personal history of malignant neoplasm of prostate

== ENCOUNTER → 2019-11-10 | Outpatient (REF) | payer MEDICARE ==
[2019-11-10 18:01] LABS: APPEARANCE, URINE TURBID (CLEAR); BACTERIA, URINE AUTO 1+ (NEGATIVE); BILIRUBIN, URINE AUTO NEGATIVE (NEGATIVE); BLOOD, URINE BLOOD NEGATIVE (NEGATIVE); COLOR, URINE YELLOW (YELLOW); GLUCOSE, URINE (UA) AUTO NEGATIVE (NEGATIVE); KETONE, URINE AUTO NEGATIVE (NEGATIVE); LEUKOCYTE ESTERASE, URINE AUTO 3+ (NEGATIVE); NITRITE, URINE AUTO NEGATIVE (NEGATIVE); PROTEIN, URINE AUTO 2+ mg/dL (NEGATIVE); RBC, URINE AUTO 27 /HPF (0-3); SPECIFIC GRAVITY URINE AUTO 1.013 (1.002-1.035); SQUAMOUS EPITHELIAL CELL UR AU 0 /HPF (0-6); UROBILINOGEN, URINE AUTO 0.2 mg/dL (0.0-2.0); WBC, URINE AUTO TNTC /HPF (0-3)
== END ==
LOC: M SMT 17:04
PROVIDERS: ATTEND Urology
DX: N39.0 Urinary tract infection, site not specified (principal)

== ENCOUNTER → 2019-12-30 | Outpatient (REF) | payer MEDICARE | LOC: M LAB REF 16:47 | PROVIDERS: ATTEND Internal Medicine Nephrology | DX: N39.0 Urinary tract infection, site not specified (principal) ==

== ENCOUNTER → 2020-01-29 | Outpatient (CLI) | payer SELFPAY | LOC: M LABSMTC 12:38 | PROVIDERS: ATTEND Pediatrics | DX: Z20.828 Contact with and (suspected) exposure to other viral communicable diseases (principal) ==

== ENCOUNTER → 2020-02-02 | Outpatient (REF) | payer MEDICARE ==
[2020-02-02 18:13] LABS: APPEARANCE, URINE TURBID (CLEAR); BACTERIA, URINE AUTO 1+ (NEGATIVE); BILIRUBIN, URINE AUTO NEGATIVE (NEGATIVE); BLOOD, URINE BLOOD 1+ (NEGATIVE); COLOR, URINE YELLOW (YELLOW); GLUCOSE, URINE (UA) AUTO NEGATIVE (NEGATIVE); KETONE, URINE AUTO NEGATIVE (NEGATIVE); LEUKOCYTE ESTERASE, URINE AUTO 3+ (NEGATIVE); NITRITE, URINE AUTO NEGATIVE (NEGATIVE); PROTEIN, URINE AUTO 2+ mg/dL (NEGATIVE); RBC, URINE AUTO 105 /HPF (0-3); SPECIFIC GRAVITY URINE AUTO 1.012 (1.002-1.035); SQUAMOUS EPITHELIAL CELL UR AU 0 /HPF (0-6); TRANSITIONAL EPITHELIAL AUTO 2 /HPF; UROBILINOGEN, URINE AUTO 0.2 mg/dL (0.0-2.0); WBC, URINE AUTO TNTC /HPF (0-3)
== END ==
LOC: M SMT 17:07
PROVIDERS: ATTEND Nurse Practitioner Family
DX: R30.0 Dysuria (principal)

== ENCOUNTER → 2020-03-11 | Outpatient (CLI) | payer MEDICARE | LOC: M LAB 16:51 | PROVIDERS: ATTEND Urology | DX: C61 Malignant neoplasm of prostate (principal) ==

== ENCOUNTER → 2020-03-28 | Outpatient (REF) | payer MEDICARE ==
[~2020-03-28] MED LIST changes: +LISI10TA22 PO; -LISI10TA4 PO
[2020-03-28 18:11] LABS: HEMOGLOBIN A1c 7.2 %
== END ==
LOC: M SFHCPLAZ 14:09
PROVIDERS: ATTEND Family Medicine
DX: E11.22 Type 2 diabetes mellitus with diabetic chronic kidney disease (principal)
CPT/HCPCS: 36415; 83036; G0463

== ENCOUNTER → 2020-04-28 | Outpatient (REF) | payer MEDICARE | LOC: M LAB REF 16:51 | PROVIDERS: ATTEND Nurse Practitioner Family | DX: N39.0 Urinary tract infection, site not specified (principal) ==

== ENCOUNTER → 2020-08-10 | Outpatient (REF) | payer MEDICARE ==
[~2020-08-10] MED LIST changes: +LIPI80TA PO; +OMEP40CA4 PO; -OMEP40CA97 PO; +OYST1TAB PO; +XANA0.5T PO; +[UNRECOGNIZED DRUG - OTHER] PO
[2020-08-10 18:32] LABS: APPEARANCE, URINE TURBID (CLEAR); BACTERIA, URINE AUTO NEGATIVE (NEGATIVE); BILIRUBIN, URINE AUTO NEGATIVE (NEGATIVE); BLOOD, URINE BLOOD 1+ (NEGATIVE); COLOR, URINE YELLOW (YELLOW); GLUCOSE, URINE (UA) AUTO NEGATIVE (NEGATIVE); KETONE, URINE AUTO NEGATIVE (NEGATIVE); LEUKOCYTE ESTERASE, URINE AUTO 3+ (NEGATIVE); NITRITE, URINE AUTO NEGATIVE (NEGATIVE); PROTEIN, URINE AUTO 2+ mg/dL (NEGATIVE); RBC, URINE AUTO 88 /HPF (0-3); RENAL EPITHELIAL CELLS 2 /HPF; SPECIFIC GRAVITY URINE AUTO 1.012 (1.002-1.035); SQUAMOUS EPITHELIAL CELL UR AU 0 /HPF (0-6); UROBILINOGEN, URINE AUTO 0.2 mg/dL (0.0-2.0); WBC, URINE AUTO TNTC /HPF (0-3)
== END ==
LOC: M SMT 16:57
PROVIDERS: ATTEND Nurse Practitioner Family
DX: R30.0 Dysuria (principal)

== ENCOUNTER → 2020-09-15 | Outpatient (REF) | payer MEDICARE | LOC: M LAB REF 17:17 | PROVIDERS: ATTEND Nurse Practitioner Family | DX: E83.42 Hypomagnesemia (principal) ==

== ENCOUNTER → 2020-09-26 | Outpatient (CLI) | payer MEDICARE | LOC: M LAB 15:29 | PROVIDERS: ATTEND Urology | DX: C61 Malignant neoplasm of prostate (principal) ==

== ENCOUNTER → 2020-11-17 | Outpatient (REF) | payer MEDICARE | LOC: M SFHCPLAZ 13:30 | PROVIDERS: ATTEND Family Medicine | DX: E11.22 Type 2 diabetes mellitus with diabetic chronic kidney disease (principal) ==

== ENCOUNTER → 2021-01-16 | Outpatient (REF) | payer MEDICARE | LOC: M SMT 17:11 | PROVIDERS: ATTEND Urology | DX: C61 Malignant neoplasm of prostate (principal); E83.42 Hypomagnesemia ==

== ENCOUNTER → 2021-01-16 | Outpatient (REF) | payer MEDICARE | LOC: M LAB REF 17:08 | PROVIDERS: ATTEND Internal Medicine Nephrology | DX: E83.42 Hypomagnesemia (principal) ==

== ENCOUNTER → 2021-04-14 | Outpatient (CLI) | payer MEDICARE ==
[~2021-04-14] MED LIST changes: +FLUO-96 PO; -FLUO20CA20 PO
== END ==
LOC: M PLALAB 13:32
PROVIDERS: ATTEND Urology
DX: C61 Malignant neoplasm of prostate (principal)

== ENCOUNTER → 2021-04-20 | Outpatient (CLI) | payer MEDICARE ==
[2021-04-20 17:25] LABS: CALCIUM LEVEL 9.7 MG/DL (8.8-10.2); CREATININE FOR GFR 2.49 MG/DL (0.70-1.30); GLOMERULAR FILTRATION RATE 27.1 (>42); POTASSIUM SERUM 4.6 MEQ/L (3.5-5.1)
[2021-04-20 17:46] LABS: HEMOGLOBIN A1c 6.3 %
== END ==
LOC: M PLALAB 15:07
PROVIDERS: ATTEND Family Medicine
DX: E11.22 Type 2 diabetes mellitus with diabetic chronic kidney disease (principal)

== ENCOUNTER 2021-11-27 21:31 | Observation (INO) | payer MEDICARE ==
[~2021-11-27] VITALS: Ht 175.3 cm; Wt 80.2 kg
[2021-11-27] MEDS ORDERED: NOREPINEPHRINE 4MG IN D5 250ML 4 MG in IV 1 EA IV SCH ×2 (21:40)
[2021-11-27] MEDS ORDERED: NS 1,000 ML IV ONE (21:40)
[2021-11-27 22:34] LABS: RSV AMPLIFICATION NEGATIVE (NEGATIVE)
[2021-11-27] MEDS ORDERED: MORPHINE 10MG/0.5ML ORAL CONCENTRATE SOLUTION U/D SL PRN (23:15)
[2021-11-27] MEDS ORDERED: SCOPOLAMINE 1MG TRANSDERMAL PATCH TOP PRN (23:15)
[2021-11-27] MEDS ORDERED: ONDANSETRON 4MG 2ML VIAL IV PRN (23:15)
[2021-11-27 23:35] VITALS: BP 49/34
== END 2021-11-28 00:40 | disposition expired ==
LOC: M ED 21:31 → EDBD 21:31 → M ED INP 21:32
PROVIDERS: ADMIT Internal Medicine; ATTEND Internal Medicine
DX: I95.9 Hypotension, unspecified (principal); J96.11 Chronic respiratory failure with hypoxia; C61 Malignant neoplasm of prostate; N18.4 Chronic kidney disease, stage 4 (severe); I12.9 Hypertensive chronic kidney disease with stage 1 through stage 4 chronic kidney disease, or unspecified chronic kidney disease; E11.22 Type 2 diabetes mellitus with diabetic chronic kidney disease; R94.31 Abnormal electrocardiogram [ECG] [EKG]; K44.9 Diaphragmatic hernia without obstruction or gangrene; G47.30 Sleep apnea, unspecified; F32.A Depression, unspecified; F41.9 Anxiety disorder, unspecified; G25.81 Restless legs syndrome; E78.5 Hyperlipidemia, unspecified; R29.6 Repeated falls; R11.10 Vomiting, unspecified; R63.0 Anorexia; Z66 Do not resuscitate; Z51.5 Encounter for palliative care; Z79.899 Other long term (current) drug therapy; Z79.82 Long term (current) use of aspirin; Z79.891 Long term (current) use of opiate analgesic; Z88.0 Allergy status to penicillin; Z91.040 Latex allergy status
CPT/HCPCS: 87631; 93005; 93041; 96374; 99285; G0378